=== PATIENT | male | born 1975 | race Caucasian/White ===

== ENCOUNTER 2017-03-09 18:47 | Day surgery (SDC) | payer BC ==
[~2017-03-09] VITALS: Ht 177.8 cm; Wt 73.8 kg
[2017-03-09 20:23] LABS: HEMATOCRIT 45.8 % (38.0-50.0); MCH 30.9 PG (29.0-34.0); MCHC 34.9 G/DL (30.0-36.0); MCV 88.6 FL (86-99); MEAN PLAT.VOLUME 9.8 uM^3 (9.0-12.4); PLATELET COUNT 221 K/uL (156-360); RBC DIS.WIDTH-CV 12.3 % (11.8-14.6); RBC DIS.WIDTH-SD 40.5 % (39-53); RED BLOOD COUNT 5.17 M/uL (4.00-5.50); WHITE BLOOD COUNT 9.3 K/uL (4.1-10.2)
[2017-03-09 20:30] LABS: CHLORIDE 107 mEq/L (99-109); SODIUM 141 mEq/L (136-147)
[2017-03-09 20:32] LABS: GLUCOSE 95 mg/dL (70-99)
[2017-03-09 20:33] LABS: POINT-OF-CARE METER ID UU13113702
[2017-03-09 20:34] LABS: ANION GAP 11 MEQ/L (2-14)
[2017-03-09 20:36] LABS: GFR ESTIMATE (CALCULATED) > 59 mL/min/
[2017-03-09 20:37] LABS: UREA NITROGEN (BUN) 18 mg/dL (9-23)
[2017-03-09 22:57] VITALS: BP 122/96
[2017-03-09 23:03] LABS: POINT-OF-CARE METER ID UU13113702
== END 2017-03-10 00:55 | disposition home or self-care (01) ==
LOC: EME 18:47 → SDC 22:57
PROVIDERS: Nurse Practitioner Family
PROC: 0DB58ZX Excision of Esophagus, Via Natural or Artificial Opening Endoscopic, Diagnostic (ICD-10-PCS; principal; 2017-03-09)
DX: T18.128A Food in esophagus causing other injury, initial encounter (principal); K20.0 Eosinophilic esophagitis; I10 Essential (primary) hypertension; J45.909 Unspecified asthma, uncomplicated
CPT/HCPCS: 70360; 80048; 82948; 85027; 88305; 93005; 99281; 99285; J0330; J2405; J7050; S0164